=== PATIENT | female | born 1950 | race Caucasian/White ===

== ENCOUNTER → 2023-11-27 20:19 | Outpatient (REF) | payer OTHER, SELFPAY | LOC: MRI 20:19 | PROVIDERS: ATTENDING PHYSICIAN Dermatology; FAMILY PHYSICIAN Family Medicine | DX: D48.5 Neoplasm of uncertain behavior of skin (principal) | CPT/HCPCS: 73720; A9575 ==

== ENCOUNTER → 2023-12-01 10:48 | Outpatient (REF) | payer OTHER, SELFPAY ==
[2023-12-01 11:30] LABS: % Basophils 0.6 % (0-2); % Eosinophils 2.5 % (0-6); % Immature Granulocytes 0.3 % (0-0.5); % Lymphocytes 36.4 % (20.5-51.1); % Monocytes 10.1 % (1.7-9.3); % Neutrophils 50.1 % (42.2-75.2); Absolute Eosinophils 0.2 10^3/uL (0-0.7); Absolute Lymphocytes 2.3 10^3/uL (1.2-3.4); Absolute Monocytes 0.6 10^3/uL (0.1-0.6); Absolute Neutrophils 3.2 10^3/uL (1.4-6.5); Hematocrit 39.7 % (37.0-47.0); Hemoglobin 13.6 g/dL (12.0-16.0); Mean Corp Hgb Conc. 34.3 g/dL (33.0-37.0); Mean Corpuscular Hgb 30.6 pg (27.0-31.0); Mean Corpuscular Volume 89.4 fL (81.0-99.0); Mean Platelet Volume 9.7 fL (7.4-10.4); Nucleated Red Blood Cells % 0 %; Platelet Count 247 10^3/uL (130-400); Red Blood Cell Count 4.44 10^6/uL (4.20-5.40); Red Cell Dist. Width 12.9 % (11.5-14.5); White Blood Cell Count 6.4 10^3/uL (4.8-10.8)
[2023-12-01 13:07] LABS: ALT (SGPT) 23 U/L (0-35); AST (SGOT) 26 U/L (14-36); Albumin 4.1 g/dl (3.5-5.0); Alkaline Phosphatase 58 U/L (38-126); Blood Urea Nitrogen 21 mg/dl (7-17); Calcium 9.6 mg/dl (8.4-10.2); Carbon Dioxide 27 mmol/L (22-30); Chloride 102 mmol/L (98-107); Glucose 77 mg/dl (70-99); Potassium 4.7 mmol/L (3.5-5.1); Sodium 139 mmol/L (135-145); Total Bilirubin 0.7 mg/dl (0.2-1.3); Total Protein 6.9 g/dl (6.3-8.2); eGFR > 60.00
== END ==
LOC: REG 10:48
PROVIDERS: ATTENDING PHYSICIAN Surgery Plastic and Reconstructive Surgery; FAMILY PHYSICIAN Family Medicine
DX: Z01.818 Encounter for other preprocedural examination (principal)
CPT/HCPCS: 36415; 80053; 85025; 93005

== ENCOUNTER 2023-12-27 06:27 | Day surgery (SDC) | payer OTHER, SELFPAY ==
[2023-12-27] VITALS (10 sets, daily range): BP systolic 0–132; BP diastolic 55–76; BMI 24.8
[2023-12-27] MEDS: TYLENOL 1000 MG PO (10:06)
[2023-12-27] MEDS: NORMOSOL-R 1000 IV (10:07)
[2023-12-27] MEDS: TRANSDERM-SCOP 1 PATCH TRANSDERM (10:46)
--- NOTE | 2023-12-27 11:03 | W.SUR.PREOP ---
Pre-Operative Surgical Note
-
I have examined this patient prior to the performance of the scheduled procedure.
The patient's condition is unchanged from the time of the current History and
Physical and the patient is able to undergo the scheduled procedure.
--- NOTE | 2023-12-27 11:03 | OR.RPT ---
Operative Report
Operative Report
Surgeon: GAURAV Lee MD
Date of surgery: 12/27/2023
Preoperative diagnosis: Left thigh intramuscular soft tissue mass, 7 x 3 x 3 cm
Postoperative diagnosis: Same
Procedure:
1. Excision of left thigh soft tissue mass, subfascial and intramuscular, 3.5 x 3.5 cm
2. Complex closure of left thigh wound, 4 cm
Specimens: Left thigh soft tissue mass
Complications: None
EBL: 10 cc
Anesthesia: General
Indications for procedure: Patient is a 73-year-old female who recently noticed a soft tissue mass over the left medial thigh. This was most prominent when she flexed her leg at the waist and knee. She underwent ultrasound and MRI. MRI showed 7 x
3 x 3 cm soft tissue mass consistent with benign lipoma versus atypical lipomatous mass. Discussion was had with the patient over options including observation, needle biopsy, and surgical excision. Indications for surgical excision included
pathological diagnosis and symptom resolution. Given the vascular nature of the lesion as described on MRI findings, it was discussed that a partial excision may be preferential to limit incisional length and complications. She understood these
risks and desired to proceed. Specific risks included hematoma, seroma, recurrent mass, need for repeat procedure, scar. Consents were signed accordingly
Procedure in detail: Patient was identified in the preoperative area and the surgical site was confirmed to be the left medial thigh. In the preoperative area the patient was able to reproduce the mass prominence in the frog-leg position with the
knee flexed. This was marked out accordingly as was an approximately 4 cm incision overlying the mass. Patient was taken back to the operating room placed supine on the table. Anesthesia was induced and LMA was placed. Patient was then prepped
and draped in usual sterile fashion using ChloraPrep solution. Timeout for patient safety was performed was confirmed that preoperative antibiotics have been administered and SCDs were in place. Procedure began with the injection of 1% lidocaine
with epinephrine in the proposed area of the incision. A 15 blade was used to incise the marking, dissection continued with Bovie electrocautery through the subcutaneous tissues. Blunt spreading was used to identify the deep muscular fascia. This
fascia was then incised being sure to protect any nearby vessels or nerves. Retraction was then utilized to mobilize the gracilis anteriorly to provide access to the intramuscular mass. This was identified in the capsule was incised. The capsule
and mass were intimately involved with the surrounding muscle. Careful dissection was used to tease out the medial aspect of the mass. On the deep aspect the veins noted on MRI were encountered. Vascular clips were utilized as necessary to
achieve meticulous hemostasis. Given the limited access deep nature of the mass, the decision was made to excise the components of the soft tissue mass that did not involve the underlying vasculature. As such a 3.5 x 3.5 cm specimen was removed
for pathological diagnosis and sent accordingly. Surgicel was used the wound bed. The remainder of the mass with associated vasculature was left behind. Complex closure of the thigh wound was then performed over a length of 4 cm. A 15 [place]
Mike drain was placed into the wound bed and sutured to the skin with a 2-0 nylon. Patient tolerated the procedure well was performed out complication, all counts were correct at the end the case. She was extubated taken the PACU for further
care. An appropriate compressive dressing was placed over the left thigh.
--- NOTE | 2023-12-27 11:03 | W.IMMPOSTOP ---
Surgical Immed Post Op Note
-
Primary Surgeon: GAURAV Lee MD
Assisting Surgeon:
Pre-op Diagnosis: Left thigh soft tissue mass
Post-op Diagnosis: Same
Procedure Performed: Excision of left thigh soft tissue mass
Anesthesia Type: General
Specimen / Cultures: Left thigh soft tissue mass
Estimated Blood Loss: 10 cc
Complications: None
Operative Findings: As expected, 15 [place] Mike left in the defect.
== END 2023-12-27 14:20 | disposition home or self-care (01) ==
LOC: SDS 06:27
PROVIDERS: ATTENDING PHYSICIAN Surgery Plastic and Reconstructive Surgery; FAMILY PHYSICIAN Family Medicine
DX: D17.24 Benign lipomatous neoplasm of skin and subcutaneous tissue of left leg (principal); R22.42 Localized swelling, mass and lump, left lower limb
CPT/HCPCS: 27339; 13121; 88304; A4648

== ENCOUNTER → 2024-02-20 16:30 | Outpatient (REF) | payer OTHER, SELFPAY | LOC: HWWDC 16:30 | PROVIDERS: ATTENDING PHYSICIAN Obstetrics & Gynecology Gynecology; FAMILY PHYSICIAN Family Medicine | DX: Z12.31 Encounter for screening mammogram for malignant neoplasm of breast (principal) | CPT/HCPCS: 77063; 77067 ==

== ENCOUNTER → 2024-03-01 10:14 | Outpatient (REF) | payer OTHER, SELFPAY | LOC: HWRAD 10:14 | PROVIDERS: ATTENDING PHYSICIAN Obstetrics & Gynecology Gynecology; FAMILY PHYSICIAN Family Medicine | DX: R10.2 Pelvic and perineal pain (principal) | CPT/HCPCS: 76830; 76856 ==

== ENCOUNTER → 2024-06-14 08:38 | Outpatient (REF) | payer OTHER, SELFPAY | LOC: RAD 08:38 | PROVIDERS: ATTENDING PHYSICIAN Family Medicine | DX: R10.30 Lower abdominal pain, unspecified (principal); R10.2 Pelvic and perineal pain | CPT/HCPCS: 74177; Q9967 ==

== ENCOUNTER 2024-12-13 06:28 | Day surgery (SDC) | payer OTHER, SELFPAY | END 2024-12-13 10:17 | disposition home or self-care (01) | LOC: GI 06:28 | PROVIDERS: ATTENDING PHYSICIAN Internal Medicine Gastroenterology | DX: Z12.11 Encounter for screening for malignant neoplasm of colon (principal); K57.30 Diverticulosis of large intestine without perforation or abscess without bleeding; K64.8 Other hemorrhoids; K56.699 Other intestinal obstruction unspecified as to partial versus complete obstruction; D12.2 Benign neoplasm of ascending colon; D12.4 Benign neoplasm of descending colon; Z80.0 Family history of malignant neoplasm of digestive organs | CPT/HCPCS: 45385; 88305 ==

== ENCOUNTER → 2025-07-25 13:07 | Outpatient (REF) | payer OTHER, SELFPAY | LOC: HWWDC 13:07 | PROVIDERS: ATTENDING PHYSICIAN Family Medicine; REFERRING PHYSICIAN Obstetrics & Gynecology Gynecology | DX: Z12.31 Encounter for screening mammogram for malignant neoplasm of breast (principal) | CPT/HCPCS: 77063; 77067 ==